=== PATIENT | male | born 1995 | race African-American/Black ===

== ENCOUNTER 2020-08-19 20:37 | Emergency (ER) | payer OTHER, SELFPAY ==
[2020-08-19] MEDS ORDERED: Acetaminophen 500 MG TAB ONE (20:43)
[2020-08-19] MEDS ORDERED: Albuterol 200 PUFF (6.7GM INHALER) ONE (20:58)
== END 2020-08-19 23:18 | disposition home or self-care (01) ==
LOC: ERS 20:37
DX: R07.9 Chest pain, unspecified (principal); Z20.822 Contact with and (suspected) exposure to COVID-19
CPT/HCPCS: 71045; 93005

== ENCOUNTER 2021-10-08 19:09 | Emergency (ER) | payer SELFPAY ==
[2021-10-08] MEDS ORDERED: Ketorolac Tromethamine 30 MG/ML VIAL ONE (20:23)
== END 2021-10-08 21:01 | disposition home or self-care (01) ==
LOC: ERS 19:09
DX: M54.50 Low back pain, unspecified (principal)
CPT/HCPCS: 72100; 96374; J1885